=== PATIENT | female | born 1965 | race Hispanic/Latino ===

== ENCOUNTER 2023-08-15 20:57 | Emergency (ER) | payer BC ==
[~2023-08-15] VITALS: Ht 157.5 cm; Wt 120.0 kg
[2023-08-15] MEDS ORDERED: SIMVASTATIN20 MG PO (21:20)
[2023-08-15] MEDS ORDERED: LOSARTAN POTAS100 MG PO (21:22)
[2023-08-15] MEDS ORDERED: HYDROCHLOROTH12.5 MG PO (21:22)
[2023-08-15] MEDS ORDERED: METFORMIN HCL500 MG PO (21:22)
[2023-08-15 21:45] LABS: BASOPHILS 1.4 % (0-2); EOSINOPHILS 2.4 % (0-6); HEMATOCRIT 40.4 % (35.0-50.0); HEMOGLOBIN 13.5 g/dL (12.0-18.0); LYMPHOCYTES 35.9 % (24-44); MCH 30.1 (27-36); MCHC 33.5 g/dl (30-36); MONOCYTES 6.7 % (0-12); NEUTROPHILS 53.6 % (39-80); PLATELET COUNT 143 K/uL (140-440); RBC 4.48 M/ul (4.3-5.7); RDW 13.9 (10.5-15.0)
[2023-08-15] MEDS ORDERED: KETOROLAC TROMETHAMINE 30 MG/ML VIAL IV ONE (22:00)
[2023-08-15] MEDS ORDERED: diazePAM 10 MG/2 ML SYR IV ONE (22:00)
[2023-08-15 22:03] LABS: ALBUMIN 3.2 g/dL (3.4-5.0); ALBUMIN/GLOBULIN RATIO 0.65 (1.1-2.4); ANION GAP 10.4 (7-21); BILIRUBIN, TOTAL 0.7 ng/dL (0.2-1.0); BUN/CREATININE RATIO 23.94 (6.0-28.6); CALCIUM 9.1 mg/dL (8.5-10.1); CREATININE, SERUM 0.71 mg/dL (0.55-1.02); MAGNESIUM 1.5 mg/dL (1.8-2.4); POTASSIUM 4.4 mmol/L (3.5-5.1); PROTEIN, TOTAL 8.1 g/dL (6.4-8.2)
[2023-08-15] MEDS ORDERED: MAGNESIUM SULFATE 2 GM/50 ML BAG IV ONE (22:30)
[2023-08-15] MEDS ORDERED: CYCLOBENZAPRINE10 MG PO (22:48)
[2023-08-15] MEDS ORDERED: CYCLOBENZAPRINE HCL 10 MG HOME.PACK PO ONE (23:00)
[2023-08-15] MEDS ORDERED: methylPREDNISolone 4 MG HOME.PACK PO ONE (23:00)
[2023-08-15 23:31] VITALS: BP 173/91
--- NOTE | 2023-08-16 22:09 | EKG ---
[facility] [address] [facility] [place] [address] Signed Normal sinus rhythm Normal ECG No previous ECGs available Confirmed by Ashwini Tovar MD () on 08/16/2023 10:09:40 PM Electronically Signed By: ASHWINI TOVAR MD 08/16/232208 PATIENT NAME: LAURE GARCIA Electrocardiogram DATE OF : 63 PHYSICIAN: ASHWINI TOVAR MD REPORT #: [id number] REPORT IS CONFIDENTIAL AND NOT TO BE RELEASED WITHOUT AUTHORIZATION
== END 2023-08-15 23:30 | disposition home or self-care (01) ==
LOC: ED 20:57
PROVIDERS: Family Medicine
DX: R07.89 Other chest pain (principal); I10 Essential (primary) hypertension; E11.9 Type 2 diabetes mellitus without complications; Z79.84 Long term (current) use of oral hypoglycemic drugs; Z79.899 Other long term (current) drug therapy
CPT/HCPCS: 36415; 71250; 80053; 83735; 84484; 85025; 96365; 96375; 99284-25; J1885; J3360; J3475